=== PATIENT | female | born 1965 | race Caucasian/White ===

== ENCOUNTER 2024-01-07 11:59 | Inpatient (IN) ==
[2024-01-07 13:12] LABS: Basophils # (auto) 0.02 K/uL (0.00-0.20); Basophils % (auto) 0.2 %; Eosinophils % (auto) 1.2 %; Hematocrit (blood only) 44.2 % (37.0-47.0); Immature Granulocytes # (auto) 0.03 K/uL (0.01-0.20); Immature Granulocytes % (auto) 0.4 %; Lymphocytes # (auto) 1.02 K/uL (1.20-3.40); Mean Corpuscular Hgb Conc 33.9 g/dL (32.0-36.0); Mean Corpuscular Volume 88.4 fL (80.0-100.0); Mean Platelet Volume 9.7 fL (9.4-12.4); Monocytes # (auto) 0.67 K/uL (0.11-0.59); Monocytes % (auto) 7.9 %; Neutrophils # (auto) 6.67 K/uL (1.40-6.50); Neutrophils % (auto) 78.3 %; Platelet Count 201 K/uL (130-400); RDW Coefficient of Variation 13.4 % (11.5-14.5); RDW Standard Deviation 43.5 fL (36.4-46.3); White Blood Count 8.51 K/ul (4.8-10.8)
[2024-01-07 13:26] LABS: Appearance Urine Cloudy (Clear); Bacteria Urine Automated 2+ (None Seen); Bilirubin Urine Negative (Negative); Blood Urine Trace (Negative); Color Urine Yellow; Glucose Urine UA Negative (Negative); Ketones Urine Negative (Negative); Leukocyte Esterase Urine 2+ (Negative); Nitrite Urine Negative (Negative); Protein Urine Trace (Negative); RBC Urine Automated 0-2 /hpf (0-2); Specific Gravity Urine 1.023 (1.000-1.030); Urobilinogen Urine Negative (Negative); WBC Urine Automated >50 /hpf (0-5); pH Urine 5.5 (4.5-7.5)
[2024-01-07 13:48] LABS: Albumin Globulin Ratio 1.6 (0.9-2); Albumin Level 4.4 gm/dl (3.4-5.0); BUN Creatinine Ratio 16.1 (10-20); Bilirubin,Total 0.8 mg/dl (0.2-1.0); Calcium 9.9 mg/dl (8.6-10.3); Creatinine Clr Calc Pharmacy 77.9 ml/min; Est GFR (African American) 63.6 ml/min; Est GFR (Non-African American) 54.9 ml/min; Globulin 2.8 gm/dl (2.5-4.0); Potassium 4.3 mmol/L (3.5-5.1); Total Protein 7.2 gm/dl (6.0-8.3)
[2024-01-07] MEDS: SODIUM CHLORIDE 0.9% 500 ML IV STA (14:36)
--- NOTE | 2024-01-07 15:13 | Emergency Department Note ---
Impression & Plan Renal colic, Ureterolithiasis, Hydronephrosis, Flank Pain ED Provider Note NAME: TIFF HUNT AGE: 58 SEX: F : 1965 ARRIVES VIA: Walk-In INFORMANT: Patient ED PROVIDER(S): Mirza Harrington DO CHIEF COMPLAINT: right flank pain HPI: Patient is a 58-year-old female with a past medical history of renal stones who presents to the ER for right flank pain which started last night associated with nausea but no vomiting. She notes this feels like her previous kidney stones. She denies any headache or change in vision. No chest pain or shortness of breath. Pain is sharp and stabbing. It is slightly worse when she lays down. No dysuria, urgency, or frequency. Normal bowel movements. No other exacerbating or remitting factors. ADDITIONAL HISTORY OBTAINED: Per HPI Chronic Medical/Social Conditions Affecting Care: Per HPI PAST MEDICAL HISTORY:See Below PAST SURGICAL HISTORY:See Below FAMILY HISTORY:See Below SOCIAL HISTORY:See Below HOME MEDICATIONS:See Below ALLERGIES:See Below VITALS:See Below PHYSICAL EXAMINATION: GENERAL: Sitting up in bed, alert, well appearing, well nourished, no distress, non-toxic EYE EXAM: normal conjunctiva. OROPHARYNX: no exudate, no erythema, lips, buccal mucosa, and tongue normal and mucous membranes are moist NECK: supple, no nuchal rigidity, no adenopathy, non-tender LUNGS: Clear to auscultation. Normal chest wall mechanics HEART: no murmurs, S1 normal and S2 normal ABDOMEN: abdomen soft, non-tender, normo-active bowel sounds, no masses, no rebound or guarding. BACK: Back is symmetrical on inspection and there is no deformity, no midline tenderness, mild tenderness in the right foot UPPER EXTREMITIES: upper extremities are grossly normal. LOWER EXTREMITIES: No pitting edema. NEURO EXAM: Normal sensorium, cranial nerves II-XII grossly intact, normal speech, no gross weakness of arms, no gross weakness of legs. MEDICAL DECISION MAKING: Patient is a 58-year-old female who presents to the ER for above-stated complaint. IV was established blood work was obtained. Labs show no significant leukocytosis or anemia. BMP along LFTs bilirubin was unremarkable. Initial urine was contaminated and repeat showed +1 bacteria with greater than 50 whites and +3 leuks in the setting of 6-10 epithelial cells. This was significantly improved from previous however still showing signs of infection although this could be secondary to the stone and/or contaminated. Patient was covered with Rocephin. She was initially given morphine and Toradol and still had persistent pain. With the morphine she had a rash consequently was given Benadryl. Following this she was given a dose of Dilaudid. With the 1 cm stone in her right proximal kidney she was discussed with the hospitalist for observation. Consults/Care Managements Discussions: Per MDM Triage Nursing notes reviewed. Limited review of prior medical records performed Vital Signs: reviewed and remarkable for no significant abnormalities Differential diagnosis: Differential diagnoses includes but is not limited to gastritis, peptic ulcer disease, GERD, gallbladder disease, pancreatitis, small bowel obstruction, appendicitis, diverticulitis, hernia, urinary tract infection, torsion, /ectopic (if female), perforation, trauma, infectious. ER treatment provided: See below Diagnostics interpreted by me include EKG and cardiac monitoring as listed below: -Cardiac Monitoring: An order was placed for continuous cardiac monitoring. The monitor shows a rate of 62 with sinus rhythm. -ECG: none -Laboratory studies:Interpreted by me as stated above in MDM and shown below. Imaging studies: Xrays: As interpreted by me:none CTs show: CT abdomen pelvis per my preliminary interpretation shows a proximal right ureteral stone CT abdomen pelvis per radiology confirms a right proximal ureteral stone Procedures:none Critical Care: None Past Med/Surg History Medical History (Updated 01/07/24 @ 18:47 by Mirza Harrington DO) History of kidney stones Social History Smoking Status: Never smoker Feels Safe at Home: Yes Allergies Allergies Allergy/AdvReac Type Severity Reaction Status Date / Time morphine Allergy Intermediate ITCHING, Unverified 01/07/24 18:03 RAISED RED BUMP Home Meds Home Medications Medication Instructions Recorded Confirmed multivitamin 1 tab PO DAILY 01/07/24 01/07/24 Results & Data (ED) Vital Signs Vital Signs - 24 hr 01/07/24 12:06 01/07/24 15:00 01/07/24 16:48 Temperature 36.8 C Temperature Source Temporal Artery Scan Pulse Rate 75 Pulse Rate [Radial] 75 60 Pulse Rhythm Regular Pulse Rhythm [Radial] Regular Respiratory Rate 20 18 18 Respiratory Effort / Characteristics Non-Labored Spontaneous Non-Labored Non-Labored Respiratory Depth Normal Normal Normal Respiratory Pattern Regular Regular Blood Pressure 206/142 H Blood Pressure [Right Arm] 145/103 H 126/96 Blood Pressure Mean 163 Blood Pressure Mean [Right Arm] 117 106 Pulse Oximetry 98 96 100 Oxygen Delivery Method Room Air Room Air Room Air Sepsis Recent Fever Within 48 Hours No Sepsis New/Unexplained Change in Mental Status No Sepsis Action Taken by Nursing No Action Required Laboratory Data 01/07/24 12:45 01/07/24 12:45 Lab Results 01/07/24 01/07/24 01/07/24 Range/Units 12:45 16:30 Unknown WBC 8.51 (4.8-10.8) K/ul RBC 5.00 (4.20-5.40) M/uL Hgb 15.0 (12.0-16.0) g/dl Hct 44.2 (37.0-47.0) % MCV 88.4 (80.0-100.0) fL MCH 30.0 (25.0-34.0) pg MCHC 33.9 (32.0-36.0) g/dL RDW Std Deviation 43.5 (36.4-46.3) fL RDW Coeff of Doug 13.4 (11.5-14.5) % Plt Count 201 (130-400) K/uL MPV 9.7 (9.4-12.4) fL Immature Gran % (Auto) 0.4 % Neut % (Auto) 78.3 % Lymph % (Auto) 12.0 % [place] % (Auto) 7.9 % Eos % (Auto) 1.2 % Baso % (Auto) 0.2 % Neut # (Auto) 6.67 H (1.40-6.50) K/uL Lymph # (Auto) 1.02 L (1.20-3.40) K/uL [place] # (Auto) 0.67 H (0.11-0.59) K/uL Eos # (Auto) 0.10 (0.00-0.50) K/uL Baso # (Auto) 0.02 (0.00-0.20) K/uL Immature Gran # (Auto) 0.03 (0.01-0.20) K/uL Sodium 139 (136-145) mmol/L Potassium 4.3 (3.5-5.1) mmol/L Chloride 106 (98-107) mmol/L Carbon Dioxide 26 (21-32) mmol/L Anion Gap 7 (3-11) BUN 18 (6-23) mg/dl Creatinine 1.12 (0.6-1.2) mg/dl Est Cr Clr Drug Dosing 77.9 ml/min Est GFR ( Amer) 63.6 ml/min Est GFR (Non-Af Amer) 54.9 ml/min BUN/Creatinine Ratio 16.1 (10-20) Glucose 113 H (70-99(Fasting)) mg/dl Calcium 9.9 (8.6-10.3) mg/dl Total Bilirubin 0.8 (0.2-1.0) mg/dl AST 25 (13-39) U/L ALT 18 (7-52) U/L Alkaline Phosphatase 59 (34-104) U/L Total Protein 7.2 (6.0-8.3) gm/dl Albumin 4.4 (3.4-5.0) gm/dl Globulin 2.8 (2.5-4.0) gm/dl Albumin/Globulin Ratio 1.6 (0.9-2) Urine Color Yellow Yellow Urine Appearance Cloudy A Cloudy A (Clear) Urine pH 5.5 5.5 (4.5-7.5) Ur Specific [place] 1.020 1.023 (1.000-1.030) Urine Protein 1+ H Trace H (Negative) Urine Glucose (UA) Negative Negative (Negative) Urine Ketones Negative Negative (Negative) Urine Blood 2+ H Trace H (Negative) Urine Nitrite Negative Negative (Negative) Urine Bilirubin Negative Negative (Negative) Urine Urobilinogen Negative Negative (Negative) Ur Leukocyte Esterase 3+ H 2+ H (Negative) Urine WBC (Auto) >50 H >50 H (0-5) /hpf Urine RBC (Auto) >20 H 0-2 (0-2) /hpf U Hyaline Cast (Auto) 0-2 3-5 H (0-2) /lpf U Epithel Cells (Auto) 6-10 H 11-20 H (0-2) /hpf Urine Bacteria (Auto) 1+ H 2+ H (None Seen) POC Ur Test NEG (NEG) Administered Medications Discontinued Medications Diphenhydramine HCl (Diphenhydramine 50 Mg/Ml Vial) 50 mg IV NOW STA Stop: 01/07/24 16:41 Last Admin: 01/07/24 16:41 Dose: 50 mg Documented By: RAKESH Sodium Chloride (Nss) 500 mls @ 999 mls/hr IV .Q31M STA Stop: 01/07/24 12:40 Last Infusion: 01/07/24 17:46 Dose: Infused Documented By: Admin: 01/07/24 14:36 Dose: 999 mls/hr Documented By: RAKESH Sodium Chloride (Nss) 1,000 mls @ 999 mls/hr IV .Q1H1M ONE Stop: 01/07/24 16:08 Last Infusion: 01/07/24 17:46 Dose: Infused Documented By: Admin: 01/07/24 15:25 Dose: 999 mls/hr Documented By: RAKESH Ceftriaxone Sodium (Rocephin) 2,000 mg in 50 mls @ 100 mls/hr IV NOW STA Stop: 01/07/24 17:39 Last Infusion: 01/07/24 18:35 Dose: Infused Documented By: Admin: 01/07/24 17:41 Dose: 100 mls/hr Documented By: RAKESH Ketorolac Tromethamine (Ketorolac Tromethamine 15 Mg/Ml Vial) 15 mg IV NOW ONE Stop: 01/07/24 15:09 Last Admin: 01/07/24 15:25 Dose: 15 mg Documented By: RAKESH Morphine Sulfate (Morphine Sulfate 4 Mg/Ml 1 Ml Carp\Vial) 4 mg IV NOW STA Stop: 01/07/24 16:14 Last Admin: 01/07/24 16:20 Dose: 4 mg Documented By: RAKESH Imaging Data Radiologist's Impression: Abdomen/Pelvis CT 01/07/24 13:[address] WITHOUT CONTRAST CT DOSE: 1507.39 mGy.cm HISTORY: Acute right-sided flank pain right flank pain TECHNIQUE: Multiaxial CT images of the abdomen and pelvis were performed without contrast. A dose lowering technique was utilized adhering to the principles of ALARA. COMPARISON STUDY: 01/08/2015 FINDINGS: Mild right basilar atelectasis. No free air. The unenhanced spleen, pancreas and adrenal glands are unremarkable. Cholecystectomy. Unremarkable liver. 2 mm nodularity calculus of the inferior pole right kidney. Areas of cortical scarring and parenchymal thickening within the left kidney. Nonobstructing left renal calculi measure up to approximately 8 mm. Moderate right-sided hydronephrosis secondary to an obstructing 9 x 9 x 10 mm calculus of the ureteropelvic junction with reactive perinephric stranding. Decompressed urinary bladder with mild wall thickening. Left fundal fibroid, 1.3 cm. No abdominal aortic aneurysm or lymphadenopathy. No bowel obstruction or bowel wall thickening. Colonic diverticulosis. Normal appendix. Small fat filled umbilical hernia with diastases of 2.7 cm. Severe intervertebral disc space narrowing with endplate irregularity and mild paravertebral edema at T9-T10. Findings are likely on a degenerative basis. Additional severe discogenic degeneration at L4-L5 and L5-S1. IMPRESSION: 1. Moderate right-sided hydronephrosis secondary to an obstructing 10 mm calculus of the ureteropelvic junction. 2. Left greater than right bilateral nephrolithiasis. 3. Colonic diverticulosis. 4. Additional findings as above. ACT 112: Negative or not required by law. The above report was generated using voice recognition software. It may contain grammatical, syntax or spelling errors. Electronically signed by: Isma Martinez M.D. 01/07/2024 4:11 PM Discharge Plan Visit Data Chief Complaint: Flank Pain Stated Complaint: SIDE AND BACK PAIN ED Provider: Mirza Harrington Discharge Problem: Renal colic, Ureterolithiasis, Hydronephrosis, Flank Pain Forms Stand Alone Forms: [employer] Prescriptions Prescriptions: No Action multivitamin Tablet 1 tab PO DAILY Referrals Referrals: Alpesh Blackmon DO [Primary Care Provider] - Discharge Problem: Hydronephrosis Qualifiers: Hydronephrosis type: unspecified Qualified Code(s): N13.30 - Unspecified hydronephrosis
[2024-01-07] MEDS: SODIUM CHLORIDE 0.9% 1,000 ML IV ONE (15:25)
[2024-01-07] MEDS: KETOROLAC TROMETHAMINE 15 MG/ML VIAL IV ONE (15:25)
--- NOTE | 2024-01-07 16:12 | CT Scan Report ---
ABDOMEN AND PELVIS CT WITHOUT CONTRAST CT DOSE: 1507.39 mGy.cm HISTORY: Acute right-sided flank pain right flank pain TECHNIQUE: Multiaxial CT images of the abdomen and pelvis were performed without contrast. A dose lo wering technique was utilized adhering to the principles of ALARA. COMPARISON STUDY: 01/08/2015 FINDINGS: Mild right basilar atelectasis. No free air. The unenhanced spleen, pancreas and adrenal gl ands are unremarkable. Cholecystectomy. Unremarkable liver. 2 mm nodularity calculus of the inferior pole right kidney. Areas of cortical scarring and parenchyma l thickening within the left kidney. Nonobstructing left renal calculi measure up to approximately 8 mm. Moderate right-sided hydronephrosis secondary to an obstructing 9 x 9 x 10 mm calculus of the ure teropelvic junction with reactive perinephric stranding. Decompressed urinary bladder with mild wall thickening. Left fundal fibroid, 1.3 cm. No abdominal aortic aneurysm or lymphadenopathy. No bowel obstruction or bowel wall thickening. Colon ic diverticulosis. Normal appendix. Small fat filled umbilical hernia with diastases of 2.7 cm. Sever e intervertebral disc space narrowing with endplate irregularity and mild paravertebral edema at T9-T 10. Findings are likely on a degenerative basis. Additional severe discogenic degeneration at L4-L5 a nd L5-S1. IMPRESSION: 1. Moderate right-sided hydronephrosis secondary to an obstructing 10 mm calculus of the ureteropelvi c junction. 2. Left greater than right bilateral nephrolithiasis. 3. Colonic diverticulosis. 4. Additional findings as above. ACT 112: Negative or not required by law. The above report was generated using voice recognition software. It may contain grammatical, syntax o r spelling errors. Electronically signed by: Isma Martinez M.D. 01/07/2024 4:11 PM
[2024-01-07] MEDS: MoRPHine SULFATE 4 MG/ML 1 ML CARP\\VIAL IV STA (16:20)
[2024-01-07] MEDS: diphenhydrAMINE 50 MG/ML VIAL IV STA (16:41)
[2024-01-07 17:05] LABS: Appearance Urine Cloudy (Clear); Bacteria Urine Automated 1+ (None Seen); Bilirubin Urine Negative (Negative); Blood Urine 2+ (Negative); Color Urine Yellow; Glucose Urine UA Negative (Negative); Ketones Urine Negative (Negative); Leukocyte Esterase Urine 3+ (Negative); Nitrite Urine Negative (Negative); Protein Urine 1+ (Negative); RBC Urine Automated >20 /hpf (0-2); Urobilinogen Urine Negative (Negative); WBC Urine Automated >50 /hpf (0-5); pH Urine 5.5 (4.5-7.5)
[2024-01-07 17:07] LABS: Cast Urine Automated 0-2 /lpf (0-2)
[2024-01-07] MEDS: cefTRIAXone SODIUM 2,000 MG/50 ML BAG IV STA (17:41)
--- NOTE | 2024-01-07 17:54 | History & Physical Report ---
Date of Service January 07, 2024 Assessment & Plan (1) Ureterolithiasis: Plan: Plasma-Lyte @125ml/hr overnight Tamsulosin 0.4mg PO daily Consult urology - NPO until seen by urology (2) UTI (urinary tract infection): Plan: Currently not septic but given on and off symptoms for sometime and UA concerning will treat for UTI pending urine culture results Ceftriaxone 2g IV daily Follow up urine culture (3) Hydronephrosis: (4) Morbid obesity: Plan VTE Prophylaxis - deferred pre-operatively Diet - NPO pending urology evaluation Disposition - admit med/tele Admission and Anticipated Discharge Date Admission Date: January 07, 2024 History of Present Illness Chief Complaint: Right flank pain Primary Care Provider: Alpesh Blackmon DO Shameka Andrews is a 58 year old female who presents to the ER with right flank pain. Ongoing intermittently over the last week but severe last night and constant since 23:00. She reports chills this morning, associated vomiting but no dysuria or hematuria. She has a history of kidney stones in the past under Dr Saha although reports this was many years ago. She reports being otherwise healthy and no current medications. Allergies Allergy/AdvReac Type Severity Reaction Status Date / Time morphine Allergy Intermediate ITCHING, Unverified 01/07/24 18:03 RAISED RED BUMP Home Medications Medication Instructions Recorded Confirmed Type multivitamin 1 tab PO DAILY 01/07/24 01/07/24 History Past Med/Surg History Medical History (Updated 01/08/24 @ 07:08 by Avery Owusu MD) Morbid obesity History of kidney stones Social History Smoking Status: Never smoker Hx Alcohol Use: Yes Hx Substance Use: No Preferred Language: Cypriot Communication Ability: Effective Director Medical Affairs Required: No Beliefs That Will Affect Care: None Current Living Situation: Spouse Feels Safe at Home: Yes Safety Concerns: Feels Safe At This Time Assistive Devices: None Review of Systems Review of Systems: All systems reviewed & are unremarkable except as noted in HPI & below Physical Exam Constitutional: well developed and + morbidly obese; no acute distress Eyes: + anicteric sclerae; normal pupil size Respiratory: normal respiratory effort, lungs clear to auscultation Cardiovascular: RRR, no murmur, no edema Gastrointestinal (Abdomen): normal bowel sounds, soft, nontender, no hepatosplenomegaly Skin: no rashes, warm and dry Psychiatric: A+Ox3, euthymic affect Genitourinary: + CVA tenderness (right) Results & Data Results & Data Vital Signs (Past 12 Hours) Vital Signs Temp Pulse Pulse Resp BP BP Pulse Ox 01/07/24 16:48 60 18 126/96 100 01/07/24 15:00 75 18 145/103 H 96 01/07/24 12:06 36.8 C 75 20 206/142 H 98 O2 Del Method 01/07/24 16:48 Room Air 01/07/24 15:00 Room Air 01/07/24 12:06 Room Air Laboratory Results Abnormal lab results 01/07/24 01/07/24 01/07/24 Range/Units 12:45 16:30 Unknown Neut # (Auto) 6.67 H (1.40-6.50) K/uL Lymph # (Auto) 1.02 L (1.20-3.40) K/uL [place] # (Auto) 0.67 H (0.11-0.59) K/uL Glucose 113 H (70-99(Fasting)) mg/dl Urine Appearance Cloudy A Cloudy A (Clear) Urine Protein 1+ H Trace H (Negative) Urine Blood 2+ H Trace H (Negative) Ur Leukocyte Esterase 3+ H 2+ H (Negative) Urine WBC (Auto) >50 H >50 H (0-5) /hpf Urine RBC (Auto) >20 H (0-2) /hpf U Hyaline Cast (Auto) 3-5 H (0-2) /lpf U Epithel Cells (Auto) 6-10 H 11-20 H (0-2) /hpf Urine Bacteria (Auto) 1+ H 2+ H (None Seen) Diagnostic Findings ABDOMEN AND PELVIS CT WITHOUT CONTRAST CT DOSE: 1507.39 mGy.cm HISTORY: Acute right-sided flank pain right flank pain TECHNIQUE: Multiaxial CT images of the abdomen and pelvis were performed without contrast. A dose lowering technique was utilized adhering to the principles of ALARA. COMPARISON STUDY: 01/08/2015 FINDINGS: Mild right basilar atelectasis. No free air. The unenhanced spleen, pancreas and adrenal glands are unremarkable. Cholecystectomy. Unremarkable liver. 2 mm nodularity calculus of the inferior pole right kidney. Areas of cortical scarring and parenchymal thickening within the left kidney. Nonobstructing left renal calculi measure up to approximately 8 mm. Moderate right-sided hydronephrosis secondary to an obstructing 9 x 9 x 10 mm calculus of the ureteropelvic junction with reactive perinephric stranding. Decompressed urinary bladder with mild wall thickening. Left fundal fibroid, 1.3 cm. No abdominal aortic aneurysm or lymphadenopathy. No bowel obstruction or bowel wall thickening. Colonic diverticulosis. Normal appendix. Small fat filled umbilical hernia with diastases of 2.7 cm. Severe intervertebral disc space narrowing with endplate irregularity and mild paravertebral edema at T9-T10. Findings are likely on a degenerative basis. Additional severe discogenic degeneration at L4-L5 and L5-S1. IMPRESSION: 1. Moderate right-sided hydronephrosis secondary to an obstructing 10 mm calculus of the ureteropelvic junction. 2. Left greater than right bilateral nephrolithiasis. 3. Colonic diverticulosis. 4. Additional findings as above. Medications Administered ER Medications Given: Normal saline 1500ml bolus Toradol 15mg IV Morphine 4mg IV Diphenhydramine 50mg IV Dilaudid 0.5mg IV Code Status & VTE Plan Code Status Full VTE Prophylaxis Plan VTE Prophylaxis will be ordered: No PG Care Time/CCT Total # of Minutes Spent Total Time Spent with Patient: Total time spent is greater than 50% in coordination of care (as documented) at patient's floor/unit and/or counseling patient: Coding Level of Care Code 55699 INT INP/OBS CARE MIN Diagnoses Ureterolithiasis N20.1 UTI (urinary tract infection) N39.0 Hydronephrosis N13.30 Morbid obesity E66.01
[2024-01-07] MEDS: TAMSULOSIN HCL 0.4 MG CAP PO STA (18:46)
[2024-01-07] MEDS ORDERED: ACETAMINOPHEN 325 MG TAB PO PRN (20:47)
[2024-01-07] MEDS ORDERED: ONDANSETRON INJ 2 MG/ML 2 ML VIAL IV PRN (20:47)
[2024-01-07] MEDS ORDERED: HYDROmorphone INJ 0.5 MG/0.5 ML SYR IV PRN ×2 (20:47)
[2024-01-07] MEDS: PLASMA-LYTE A 1,000 ML IV SCH (21:55)
[2024-01-07] MEDS: HYDROmorphone INJ 0.5 MG/0.5 ML SYR IV STA (23:00)
--- NOTE | 2024-01-08 07:24 | Urology Consultation ---
Date of Consultation January 08, 2024 Assessment & Plan (1) Ureterolithiasis: (2) Hydronephrosis: 58 yo/F admitted for right flank pain secondary to an obstructing 10 mm right UPJ stone, suspicion of UTI. She is afebrile, hypertensive with otherwise stable vitals Labs on arrival with normal renal function, no leukocytosis; labs pending at time of visit Urinalysis suspicious for infection with leukocyte esterase, pyuria and bacteria Urine culture pendingcontinue broad-spectrum antibiotics and narrow per sensitivity data when available CT A/P with an obstructing 10 mm right UPJ stone; additional nonobstructing renal calculi bilaterally Reports intermittent right flank pain, improved since arrival Discussed options for stone management including right ureteral stent placement today Discussed stone treatment would be at a later date Ureteral stents were discussed in detail After discussion, she would like to proceed with right ureteral stent placement today Will proceed to OR with cystoscopy, retrograde pyelogram and right ureteral stent placement Risks and benefits of procedure to be reviewed with patient by Dr. Saha Keep NPO for procedure Continue supportive care and antibiotics per medicine service History of Present Illness Reason for Consultation: Ureterolithiasis, hydro, UTI Requesting Physician: Dr. Owusu Attending Physician: Shaheen Crawford MD History of Present Illness This is a 58-year-old female with past medical history of morbid obesity and bilateral nephrolithiasis who presented to the emergency department on 01/07/2024 with right flank pain and nausea. On arrival, she was afebrile, hypertensive but otherwise stable vitals. Lab wo rk reviewed and showed creatinine 1.12, WBC 8.51, hemoglobin 15.0. Urinalysis showed 2+ blood, 3+ LE, >50 WBC, >20 RBC, 6-10 epithelial cells and 1+ bacteria. Urine negative. CT abdomen pelvis showed moderate right-sided hydronephrosis secondary to an obstructing 10 mm calculus at the UPJ; bilateral nephrolithiasis left greater than right. Patient seen and examined in the emergency department this morning. She is resting in litter, no apparent distress. She reports pain has improved since arrival. She is voiding spontaneously. No dysuria or hematuria. She is n.p.o. Denies nausea, vomiting, fever or chills at present. Reports prior stone history. Followed with our service in the past. History of ureteroscopy and laser lithotripsy. Allergies Allergy/AdvReac Type Severity Reaction Status Date / Time morphine Allergy Intermediate ITCHING, Unverified 01/07/24 18:03 RAISED RED BUMP Home Medications Medication Instructions Recorded Confirmed Type multivitamin 1 tab PO DAILY 01/07/24 01/07/24 History Patient History Medical History Morbid obesity History of kidney stones Social History Smoking Status: Never smoker Hx Alcohol Use: Yes Hx Substance Use: No Preferred Language: Urdu Communication Ability: Effective Procedure Analyst Required: No Beliefs That Will Affect Care: None Current Living Situation: Spouse Feels Safe at Home: Yes Safety Concerns: Feels Safe At This Time Assistive Devices: None Review of Systems Review of Systems: All systems reviewed & are unremarkable except as noted in HPI & below Physical Exam Constitutional: well developed, well nourished and + obese; no acute distress Respiratory: normal respiratory effort; no respiratory distress and no labored breathing Gastrointestinal (Abdomen): Inspection/Auscultation: abdomen normal to inspection Musculoskeletal: Head/Neck/Chest: normocephalic Neurologic: moves all extremities and awake Psychiatric: Orientation: alert and oriented x 3 Results & Data Vital Signs (Past 12 Hours) Vital Signs Pulse Resp BP BP Pulse Ox Pulse Ox O2 Del Method 01/08/24 06:00 77 20 194/103 H 98 Room Air 01/08/24 04:00 69 19 186/109 H 96 Room Air 01/08/24 00:31 96 01/08/24 00:21 62 16 149/84 H 94 Room Air 01/07/24 22:10 78 20 115/91 98 Room Air 01/07/24 22:00 85 18 124/84 98 Room Air 01/07/24 19:27 98 Room Air O2 Del Method 01/08/24 06:00 01/08/24 04:00 01/08/24 00:31 Room Air 01/08/24 00:21 01/07/24 22:10 01/07/24 22:00 01/07/24 19:27 PG Care Time/CCT Total # of Minutes Spent Total Time Spent with Patient: Total time spent is greater than 50% in coordination of care (as documented) at patient's floor/unit and/or counseling patient: Coding Level of Care Code 84870 IN/OBS CONSULT LVL 3,45M Diagnoses Ureterolithiasis N20.1 Hydronephrosis N13.30 Hydronephrosis type: unspecified (2) Hydronephrosis Hydronephrosis type: unspecified Qualified Code(s): N13.30 - Unspecified hydronephrosis
[2024-01-08 07:36] LABS: Basophils # (auto) 0.02 K/uL (0.00-0.20); Basophils % (auto) 0.4 %; Eosinophils # (auto) 0.14 K/uL (0.00-0.50); Eosinophils % (auto) 2.5 %; Hematocrit (blood only) 40.4 % (37.0-47.0); Hemoglobin 13.5 g/dl (12.0-16.0); Immature Granulocytes # (auto) 0.03 K/uL (0.01-0.20); Immature Granulocytes % (auto) 0.5 %; Lymphocytes # (auto) 0.94 K/uL (1.20-3.40); Lymphocytes % (auto) 16.5 %; Mean Corpuscular Hemoglobin 30.1 pg (25.0-34.0); Mean Corpuscular Hgb Conc 33.4 g/dL (32.0-36.0); Mean Platelet Volume 9.6 fL (9.4-12.4); Monocytes # (auto) 0.44 K/uL (0.11-0.59); Monocytes % (auto) 7.7 %; Neutrophils # (auto) 4.14 K/uL (1.40-6.50); Neutrophils % (auto) 72.4 %; Platelet Count 149 K/uL (130-400); RDW Coefficient of Variation 13.7 % (11.5-14.5); RDW Standard Deviation 45.2 fL (36.4-46.3); Red Blood Count 4.49 M/uL (4.20-5.40); White Blood Count 5.71 K/ul (4.8-10.8)
[2024-01-08 07:49] LABS: Calcium 8.8 mg/dl (8.6-10.3); Potassium 3.8 mmol/L (3.5-5.1)
[2024-01-08 07:55] LABS: BUN Creatinine Ratio 12.7 (10-20); Creatinine Clr Calc Pharmacy 69.2 ml/min; Est GFR (African American) 55.2 ml/min; Est GFR (Non-African American) 47.6 ml/min
[2024-01-08] MEDS: TAMSULOSIN HCL 0.4 MG CAP PO SCH (08:12)
[2024-01-08] MEDS ORDERED: ONDANSETRON INJ 2 MG/ML 2 ML VIAL ONE (10:14)
[2024-01-08] MEDS ORDERED: fentaNYL citrate PF 100 MCG/2 ML VIAL ONE (10:14)
[2024-01-08] MEDS ORDERED: LIDOCAINE 2% 2 ML VIAL/AMP(20MG/ML) INFIL ONE (10:14)
[2024-01-08] MEDS ORDERED: DEXAMETHASONE SOD INJ 4 MG/ML VIAL ONE (10:14)
[2024-01-08] MEDS ORDERED: PROPOFOL IV EMULSION 10 MG/ML 20 ML VIAL IV ONE (10:14)
[2024-01-08] MEDS ORDERED: MIDAZOLAM HCL 1 MG/ML 2ML VIAL ONE (10:14)
--- NOTE | 2024-01-08 11:06 | Operative Report ---
PG Post Operative Report Pre & Post Diagnosis Operation Date: 01/08/24 10:40 Pre-Op Diagnosis: Ureterolithiasis with Obstruction and UTI Post-Op Diagnosis: Ureterolithiasis with Obstruction and UTI I identified the patient and participated in the time-out.: Yes Procedure Operation Date: 01/08/24 10:40 Actual Procedures p Cystoscopy with Right Ureteral Stent Placement(Right) - Yifan Saha MD Surgeon Yifan Saha MD Branch Operations Coordinator None Estimated Blood Loss 0 Findings Consistent with Post-Op Diagnosis Specimens None Description of Procedure The patient was identified in the preoperative holding area, appropriate informed consents were reviewed and completed and the patient was transferred to the operative suite. Upon arrival, appropriate antibiotics and anesthesia were administered and the patient was placed in dorsal lithotomy position and prepped and draped in sterile fashion. To begin the case to pass 22 [place] cystoscope with 30 g of visual obturator. Inspection revealed healthy appearing bladder with ureteral orifices in orthotopic position. No mucosal abnormalities. No stones within the bladder. Intermittent to the right UO and cannulated with a sensor wire and a 5 [place] open-ended catheter. There was a clear opacity in the proximal ureter and the wire bypassed this and then went into the kidney without difficulty. I then attempted to place a 6 [place] by 24 cm stent but I could not get the stent to bypass the stone. I tried to exchange this for 6 [place] by 26 cm stone but again could not get the 6 [place] stent to bypass the stone. I attempted to use my 5 [place] open-ended catheter to push the stone retrograde into the kidney but was unsuccessful. I did successfully then place a 4.8 [place] by 20-32 cm multilength stent and this bypassed the stone and coiled in the lower pole. There was good drainage through and around the stent. She was reversed of anesthesia and taken to the recovery room in stable condition. There were no complications I attest to the content of the Intraoperative Record and any orders documented therein. Any exceptions are noted below.
--- NOTE | 2024-01-08 11:24 | Fluoroscopy Report ---
FL KUB CLINICAL HISTORY: RT SIDE STENT PLACEMENTright-sided ureteral stent placement COMPARISON STUDY: CT 01/07/2024 FLUOROSCOPY TIME: 32.4 seconds FLUOROSCOPY IMAGES: 1 EXPOSURE DOSE: 19.98 mGy FINDINGS: Proximal portion of the right ureteral stent appears to be in satisfactory positioning. The distal portion was not imaged. Cholecystectomy clips are noted. IMPRESSION: Fluoroscopic assistance as above. ACT 112: Negative or not required by law. Electronically signed by: Isma Martinez M.D. 01/08/2024 11:23 AM
--- NOTE | 2024-01-08 12:40 | Discharge Summary ---
Date of Service January 08, 2024 Admission HPI Per Admitting Provider Shameka Andrews is a 58 year old female who presents to the ER with right flank pain. Ongoing intermittently over the last week but severe last night and constant since 23:00. She reports chills this morning, associated vomiting but no dysuria or hematuria. She has a history of kidney stones in the past under Dr Saha although reports this was many years ago. She reports being otherwise healthy and no current medications. Principal Diagnosis Ureterolithiasis, hydronephrosis Discharge Exam The patient is awake, alert and oriented 3, well developed and well nourished, normocephalic and atraumatic, lying in bed and in no acute distress. HEENT--PERRL, EOMI, mucous membranes and oropharynx mildly dry Neck--supple. No JVD. No bruits. Thyroid normal, trachea midline, no adenopathy. Heart--normal S1 and S2. No murmurs, rubs or gallops. Lungs--clear bilaterally, no respiratory distress, no accessory muscle use. Abdomen--normal bowel sounds and soft. Extremities--no cyanosis or clubbing. No edema. Dermatologic--normal skin turgor, normal color, no abnormal lymph nodes, no rash. Neurologic--cranial nerves II through XII grossly intact. Rheumatologic--normal range of motion. Psychiatric--normal affect. Discharge Data Allergies Allergy/AdvReac Type Severity Reaction Status Date / Time morphine Allergy Intermediate ITCHING, Unverified 01/07/24 18:03 RAISED RED BUMP Consultations 01/07/24 17:22 ED Decision to Admit Stat 01/07/24 18:02 Consult Urology Routine Procedures Performed Operation Date: 01/08/24 10:40 Actual Procedures p Cystoscopy with Right Ureteral Stent Placement(Right) - Yifan Saha MD Ordered Studies 01/07/24 13:29 CT stones [CT abd pelvis wo con] Stat 01/08/24 11:00 FL KUB Routine Hospital Course (1) Ureterolithiasis: She is now status post cystoscopy with right ureteral stent placement By urology stable to be discharged Follow-up with urology outpatient. (2) UTI (urinary tract infection): Currently not septic but given on and off symptoms for sometime and UA concerning will treat for UTI pending urine culture results Ceftriaxone 2g IV daily Follow up urine culture Discharged on p.o. cephalexin for 5 more days (3) Hydronephrosis: (4) Morbid obesity: Plan VTE Prophylaxis - deferred pre-operatively Diet - NPO pending urology evaluation Disposition - admit med/tele Total Time Total Time Spent Total Time Spent (In Minutes): 35 Discharge Plan Discharge Items Patient Disposition: Home - Self-Care Reason For Visit: URETEROLITHIASIS WITH OBSTRUCTION AND UTI Discharge Diagnosis: Kidney stone, status post stent Activity: Resume your previous activity Non-emergency contact: Primary Care Provider and Urologist Call non-emergency contact if: you have any medication questions Follow-up/Referrals: Alpesh Blackmon DO [Primary Care Provider] - Diet: Regular Addtl Attending Provider Instructions: Please make appointment follow-up with urologist Pending Studies at Discharge: No Stand-Alone Forms: Anesthesia/Sedation, Adult, [facility] [place] [employer], Smoking Cessation Medications and DC Order Prescriptions: New hydrocodone-acetaminophen 5-325 mg tablet 1 tab PO Q6H PRN (Reason: pain) Qty: 15 0RF sulfamethoxazole-trimethoprim [Bactrim DS] 800-160 mg tablet 1 tab PO BID Qty: 10 0RF Continued multivitamin Tablet 1 tab PO DAILY Discharge Orders: Discharge Order (Routine); Ordered 01/08/24 Ordered By: Shaheen Sheehan/Other Patient Handouts: DVT Post Op Prevention Admission Data Admit Date/Time: 01/07/24 17:47 Attending Provider: Shaheen Crawford Admit Provider: Avery Owusu Primary Care Provider: Alpesh Blackmon Other Providers: Avery Owusu; Jeronimo Campos Coding Level of Care Code 60493 INP/OBS DISCH >30 MIN Diagnoses Ureterolithiasis N20.1 UTI (urinary tract infection) N39.0 Hydronephrosis N13.30 Hydronephrosis type: unspecified Morbid obesity E66.01 Time Spent (min) 35
--- NOTE | 2024-01-08 13:00 | Anesthesiology Progress Note ---
Date of Service January 08, 2024 Anesthesia Post Procedure Vital Signs Vital Signs: Temp Pulse Pulse Resp BP BP Pulse Ox 01/08/24 12:25 36.9 C 82 18 118/94 94 01/08/24 11:55 36.7 C 73 18 149/99 H 96 01/08/24 11:45 37.0 C 73 15 125/83 97 01/08/24 11:35 76 19 125/78 94 01/08/24 11:25 36.5 C 79 18 101/80 92 01/08/24 10:15 169/93 H 01/08/24 10:08 36.8 C 86 18 156/106 H 97 01/08/24 06:00 77 20 194/103 H 98 01/08/24 04:00 69 19 186/109 H 96 01/08/24 00:31 01/08/24 00:21 62 16 149/84 H 94 01/07/24 22:10 78 20 115/91 98 01/07/24 22:00 85 18 124/84 98 01/07/24 19:27 98 01/07/24 18:47 71 18 123/76 99 Pulse Ox O2 Del Method O2 Del Method 01/08/24 12:25 Room Air 01/08/24 11:55 Room Air 01/08/24 11:45 Room Air 01/08/24 11:35 Room Air 01/08/24 11:25 Room Air 01/08/24 10:15 01/08/24 10:08 Room Air 01/08/24 06:00 Room Air 01/08/24 04:00 Room Air 01/08/24 00:31 96 Room Air 01/08/24 00:21 Room Air 01/07/24 22:10 Room Air 01/07/24 22:00 Room Air 01/07/24 19:27 Room Air 01/07/24 18:47 Room Air Pain Intensity Right Flank: Pain Intensity: 4 Transfer of Care Handoff Completed per policy Notes Mental Status: alert / awake / arousable and participated in evaluation Patient Amnestic to Procedure: Yes Nausea / Vomiting: adequately controlled Pain: adequately controlled Airway Patency, RR, SpO2: stable & adequate BP & HR: stable & adequate Hydration State: stable & adequate Anesthetic Complications: no major complications apparent
[2024-01-08] MEDS ORDERED: cefTRIAXone SODIUM 2,000 MG in DEXTROSE 5 % MINI-B 50 ML IV SCH (17:00)
--- NOTE | 2024-01-08 17:06 | Anesthesiology Consultation ---
Date of Service January 08, 2024 Assessment & Plan Chart Review Chart Review: Acceptable Risk for Surgery Consults Requested none History Surgery Operation Date: 01/08/24 10:40 Proposed Procedures p Cystoscopy with Right Ureteral Stent Placement - Yifan Saha MD Height/Weight Height: 5 ft 4 in Weight: 137.8 kg Allergies Allergy/AdvReac Type Severity Reaction Status Date / Time morphine Allergy Intermediate ITCHING, Unverified 01/07/24 18:03 RAISED RED BUMP Medications Home Medications Medication Instructions Recorded Confirmed Last Taken multivitamin 1 tab PO DAILY 01/07/24 01/07/24 01/06/24 hydrocodone 5 mg-acetaminophen 325 1 tab PO Q6H PRN pain #15 tabs 01/08/24 Unknown mg tablet sulfamethoxazole 800 1 tab PO BID #10 tabs 01/08/24 Unknown mg-trimethoprim 160 mg tablet (Bactrim DS) NPO Date Last Intake of Fluids: 01/06/24 Time Last Intake of Fluids: 18:00 Date Last Intake of Solids: 01/06/24 Time Last Intake of Solids: 18:00 Past Medical History Medical History Morbid obesity History of kidney stones Social History Smoking Status: Never smoker Hx Alcohol Use: Yes alcohol intake frequency: holidays/special occasions only Hx Substance Use: No Physical Exam Vital Signs Last Vital Signs Temp 36.9 C 01/08/24 12:25 Pulse 82 01/08/24 12:25 Resp 18 01/08/24 12:25 BP 118/94 01/08/24 12:25 Pulse Ox 94 01/08/24 12:25 O2 Del Method Room Air 01/08/24 12:25 Testing Laboratory Results 01/08/24 07:15 01/08/24 07:15 Urine Color Yellow 01/07/24 Unknown Urine Appearance Cloudy (Clear) A 01/07/24 Unknown Urine pH 5.5 (4.5-7.5) 01/07/24 Unknown Ur Specific [place] 1.023 (1.000-1.030) 01/07/24 Unknown Urine Protein Trace (Negative) H 01/07/24 Unknown Urine Glucose (UA) Negative (Negative) 01/07/24 Unknown Urine Ketones Negative (Negative) 01/07/24 Unknown Urine Nitrite Negative (Negative) 01/07/24 Unknown Ur Leukocyte Esterase 2+ (Negative) H 01/07/24 Unknown Urine WBC (Auto) >50 /hpf (0-5) H 01/07/24 Unknown Urine RBC (Auto) 0-2 /hpf (0-2) 01/07/24 Unknown U Hyaline Cast (Auto) 3-5 /lpf (0-2) H 01/07/24 Unknown U Epithel Cells (Auto) 11-20 /hpf (0-2) H 01/07/24 Unknown Urine Bacteria (Auto) 2+ (None Seen) H 01/07/24 Unknown 01/07/24 16:30 Urine Culture - Preliminary Urine,Clean Catch Pin-point growth present, reincubating. 01/07/24 Unknown Urine Culture - Preliminary Urine,Clean Catch Pin-point growth present, reincubating. 01/07/24 Unknown POC Ur Test NEG
[2024-01-08] MEDS ORDERED: ePHEDrine sulfate 50 MG/ML AMP IV PRN (17:07)
[2024-01-08] MEDS ORDERED: ATROPINE SULFATE 0.1 MG/ML 10ML SYR IV PRN (17:07)
== END 2024-01-08 12:40 | disposition home or self-care (01) | DRG 660 ==
LOC: SUATTDRO → ED 11:59 → SUATTDRO 17:47 → EDINP 17:47